=== PATIENT | male | born 1970 | race Caucasian/White ===

== ENCOUNTER 2019-04-07 21:18 | Emergency (ER) | payer OTHER ==
[2019-04-07] MEDS ORDERED: BABY ASPIRIN 81 MG CHEW PO ONE (21:44)
[2019-04-07] MEDS ORDERED: Sodium Chloride 0.9% 1000 ML 1,000 ML IV SCH (21:45)
[2019-04-07] MEDS ORDERED: Sodium Chloride 0.9% 1000 ML 1,000 ML ONE (21:47)
[2019-04-07] MEDS ORDERED: BABY ASPIRIN 81 MG CHEW ONE (21:47)
[2019-04-07 21:52] LABS: BASOPHIL % 0.6 % (0.0-0.4); Basophil (Absolute #) 0.05 (0-0.4); Eosinophil % 1.7 % (0.00-5.0); Eosinophil (Absolute #) 0.14 (0-0.5); Granulocyte Absolute (ANC) 4.77 (1.4-6.9); Granulocytes % 57.6 % (36.0-66.0); Hematocrit 44.8 % (42-50); Hemoglobin 15.7 gm/dl (12.5-18.0); INR 0.93 (0.8-3.0); Lymphocyte (Absolute #) 2.56 (1.0-4.6); Mean Cell Volume 85.7 fl (78-100); Mean Platelet Volume 10.2 fl (6-9.5); Monocytes % 9.1 % (0.0-12.0); PROTIME 10.5 SECONDS (8.83-12.87); Platelet Count 166 K/mm3 (150-450); Red Blood Count 5.23 M/mm3 (4.1-5.6); Red Cell Distribution Width 12.7 % (11.5-14.0); White Blood Count 8.3 K/mm3 (4.0-10.5)
--- NOTE | 2019-04-07 21:52 | ERPHSYRPT ---
- History of Present Illness Time Seen by Provider: 04/07/19 21:38 Historian: patient Exam Limitations: no limitations Patient Subjective Stated Complaint: PT C/O LEFT ARM/HAND TINGLING SENSATION X 3 HOURS, STATES HE LAID DOWN TO REST WHEN HE GOT BACK UP APPROX 1 HR AGO HE STARTED HAVING LEFT SIDED CHEST PAIN. DENIES CARDIAC HX. REPORTS 4 DAY HX OF VOMITING Triage Nursing Assessment: PINK/WARM/DRY, RESP EASY, A&OX4, STEADY GAIT, NO DISTRESS NOTED, EKG DONE Physician History: 48-year-old male arrives with complaint of pain in the anterior chest also had had some paresthesias in the left hand. Symptoms beginning at approximately 4:30 this afternoon after eating. According to patient around supper time (4:30 PM) he began to experience nausea and vomiting he states he had multiple episodes of vomiting, he states he then began to feel paresthesias in the left hand he did not have any problems moving or speaking. He states he laid down and then he began having pains in his anterior chest described as a pressure fairly constant. Occurring inferior to his left breast worse with deep breathing he states he has some shortness of breath. Patient states he's had this pain is approximately a 2/10 at this time. Past medical history includes high blood pressure, Past surgical history includes hernia repair, orthopedic surgery (left meniscus) Social history denies tobacco alcohol or illicit drug use Timing/Duration: today (4:30 PM) Activities at Onset: other (supper time) Quality: pressure Location: other (left anterior chest inferior to left breast) Chest Pain Radiation: no radiation Severity of Pain-Max: moderate Severity of Pain-Current: mild Modifying Factors: Improves With: other (worse with breathing). Worsens With: antacids, breathing, coughing, defecating, eating, exertion, lying down, morphine, movement, nitroglycerin, oxygen, palpation, rest, aspirin, sitting up , change in position Associated Symptoms: nausea, vomiting, shortness of breath, other (paresthesia left hand and arm), No palpitations, No heartburn, No abdominal pain, No cough, No diaphoresis, No chills, No fever, No fatigue, No weakness, No syncope, No rash, No headache, No dizziness, No edema, No back pain Prior Chest Pain/Cardiac Workup: no prior chest pain Nitro Today/Relief: no nitro taken today Aspirin Treatment Today: 81 mg x 4, provided by ED Allergies/Adverse Reactions: No Known Drug Allergies Allergy (Verified 04/07/19 21:24) - Review of Systems Constitutional: No Fever, No Chills Eyes: No Symptoms Ears, Nose, & Throat: No Symptoms Respiratory: Dyspnea, No Cough, No Stridor, No Wheezing Cardiac: Chest Pain, No Edema, No Palpitations, No Syncope, No Orthopnea Abdominal/Gastrointestinal: Nausea, Vomiting, No Abdominal Pain, No Diarrhea, No Constipation, No Hematemesis, No Hematochezia, No Melena, No Dysphagia, No Appetite Changes Genitourinary Symptoms: No Dysuria Musculoskeletal: No Back Pain, No Neck Pain Skin: No Rash Neurological: Parasthesia (pparesthesia left hand), No Dizziness, No Focal Weakness, No Gait Changes, No Headache, No Irritability, No Lethargy, No Paralysis, No Seizure, No Sensory Changes, No Speech Changes, No Tics, No Tremors, No Vertigo Psychological: No Symptoms Endocrine: No Symptoms All Other Systems: Reviewed and Negative - Past Medical History Pertinent Past Medical History: Yes Cardiac History: Hypertension - Past Surgical History Past Surgical History: Yes Gastrointestinal: Hernia Repair Musculoskeletal: Orthopedic Surgery Other Surgical History: MENISCUS - Social History Smoking Status: Never smoker Exposure to second hand smoke: No Patient Lives Alone: No - Nursing Vital Signs Nursing Vital Signs: Initial Vital Signs Temperature 98.4 F 04/07/19 21:24 Pulse Rate 76 04/07/19 21:24 Respiratory Rate 16 04/07/19 21:24 Blood Pressure 147/94 04/07/19 21:24 O2 Sat by Pulse Oximetry 99 04/07/19 21:24 Pain Scale Pain Intensity 0 - Physical Exam General Appearance: mild distress, alert Eye Exam: PERRL/EOMI, eyes nml inspection Ears, Nose, Throat Exam: normal ENT inspection, moist mucous membranes Neck Exam: normal inspection, non-tender, supple, full range of motion Respiratory Exam: normal breath sounds, lungs clear, airway intact, No chest tenderness, No respiratory distress, No diminished breath sounds Cardiovascular Exam: regular rate/rhythm, capillary refill <2 sec Gastrointestinal/Abdomen Exam: soft, No tenderness, No mass Back Exam: normal inspection, No CVA tenderness, No vertebral tenderness Extremity Exam: normal inspection, normal range of motion Neurologic Exam: alert, oriented x 3, cooperative, set off blocker II-XII nml as tested, normal mood/affect, sensation nml, other (patient is alert, oriented x3, speech normal, no facial droop, normal finger to nose, no pronator drift, machine hoop maker equal and symmetrical 5 over 5, full range of motion all extremities, sensation intact to all extremities, GCS equals 15), No motor deficits Skin Exam: normal color, warm, dry SpO2 Interpretation: normal (99%) SpO2: 99 - Course Nursing assessment & vital signs reviewed: Yes EKG Interpreted by Me: RATE (76 bpm), Sinus Rhythm, NORMAL AXIS, Other (EKG: Sinus rhythm, 76 beats per minute, normal axis, no acute ST or T wave changes.) Ordered Tests: Active Orders 24 hr Category Date Time Status Block Setter [place] STAT Care 04/07/19 21:34 Active EKG-ER Only STAT Care 04/07/19 21:34 Active IV Insertion STAT Care 04/07/19 21:34 Active Pulse Oximetry (ED) STAT Care 04/07/19 21:44 Active CHEST 1 VIEW (PORTABLE) Stat Exams 04/07/19 21:44 Taken AMYLASE Stat Lab 04/07/19 21:49 Completed CBC W DIFF Stat Lab 04/07/19 21:49 Completed CMP Stat Lab 04/07/19 21:49 Completed D-DIMER QUANTITATION Stat Lab 04/07/19 21:49 Completed LIPASE Stat Lab 04/07/19 21:49 Completed PROTIME WITH INR Stat Lab 04/07/19 21:49 Completed PTT Stat Lab 04/07/19 21:49 Completed TROPONIN Q3H Lab 04/07/19 21:49 Completed TROPONIN Q3H Lab 04/08/19 00:45 Ordered TROPONIN Q3H Lab 04/08/19 03:45 Ordered TROPONIN Q3H Lab 04/08/19 06:45 Ordered TROPONIN Q3H Lab 04/08/19 09:45 Ordered Medication Summary Generic Name Dose Route Start Last Admin Trade Name Freq PRN Reason Stop Dose Admin Sodium Chloride 1,000 mls @ 100 mls/hr 04/07/19 21:45 04/07/19 21:49 Sodium Chloride 0.9% 1000 Ml IV 05/07/19 21:44 100 mls/hr .Q10H YEISON Administration Discontinued Medications Generic Name Dose Route Start Last Admin Trade Name Freq PRN Reason Stop Dose Admin Aspirin 324 mg 04/07/19 21:44 04/07/19 21:49 Baby Aspirin 81 Mg Chew PO 04/07/19 21:45 324 mg STAT ONE Administration Aspirin Confirm 04/07/19 21:47 Baby Aspirin 81 Mg Chew Administered 04/07/19 21:48 Dose 324 mg .ROUTE .STK-MED ONE Lab/Rad Data: Laboratory Result Diagrams 04/07/19 21:49 04/07/19 21:49 Laboratory Results 04/07/19 04/07/19 04/07/19 Range/Units 21:49 21:49 21:49 WBC (4.0-10.5) K/mm3 RBC (4.1-5.6) M/mm3 Hgb (12.5-18.0) gm/dl Hct (42-50) % MCV (78-100) fl MCH (26-32) pg MCHC (32-36) g/dl RDW (11.5-14.0) % Plt Count (150-450) K/mm3 MPV (6-9.5) fl Gran % (36.0-66.0) % Eos # (Auto) (0-0.5) Absolute Lymphs (auto) (1.0-4.6) Absolute Monos (auto) (0.0-1.3) Lymphocytes % (24.0-44.0) % Monocytes % (0.0-12.0) % Eosinophils % (0.00-5.0) % Basophils % (0.0-0.4) % Absolute Granulocytes (1.4-6.9) Basophils # (0-0.4) PT 10.5 (8.83-12.87) SECONDS INR 0.93 (0.8-3.0) APTT 33.5 (24.1-36.1) SECONDS D-Dimer 382 (215-500) ng/mL Sodium (137-145) mmol/L Potassium (3.5-5.1) mmol/L Chloride (98-107) mmol/L Carbon Dioxide (22-30) mmol/L Anion Gap (5-15) MEQ/L BUN (9-20) mg/dL Creatinine (0.66-1.25) mg/dL Estimated GFR ML/MIN Glucose (74-106) mg/dL Calcium (8.4-10.2) mg/dL Total Bilirubin (0.2-1.3) mg/dL AST (17-59) U/L ALT (0-50) U/L Alkaline Phosphatase (38-126) U/L Troponin I < 0.012 (0.000-0.034) ng/mL Serum Total Protein (6.3-8.2) g/dL Albumin (3.5-5.0) g/dL Amylase 105 (30-110) U/L Lipase 124 (23-300) U/L 04/07/19 04/07/19 Range/Units 21:49 21:49 WBC 8.3 (4.0-10.5) K/mm3 RBC 5.23 (4.1-5.6) M/mm3 Hgb 15.7 (12.5-18.0) gm/dl Hct 44.8 (42-50) % MCV 85.7 (78-100) fl MCH 30.0 (26-32) pg MCHC 35.0 (32-36) g/dl RDW 12.7 (11.5-14.0) % Plt Count 166 (150-450) K/mm3 MPV 10.2 H (6-9.5) fl Gran % 57.6 (36.0-66.0) % Eos # (Auto) 0.14 (0-0.5) Absolute Lymphs (auto) 2.56 (1.0-4.6) Absolute Monos (auto) 0.75 (0.0-1.3) Lymphocytes % 31.0 (24.0-44.0) % Monocytes % 9.1 (0.0-12.0) % Eosinophils % 1.7 (0.00-5.0) % Basophils % 0.6 (0.0-0.4) % Absolute Granulocytes 4.77 (1.4-6.9) Basophils # 0.05 (0-0.4) PT (8.83-12.87) SECONDS INR (0.8-3.0) APTT (24.1-36.1) SECONDS D-Dimer (215-500) ng/mL Sodium 144 (137-145) mmol/L Potassium 3.7 (3.5-5.1) mmol/L Chloride 104 (98-107) mmol/L Carbon Dioxide 27 (22-30) mmol/L Anion Gap 17.0 H (5-15) MEQ/L BUN 10 (9-20) mg/dL Creatinine 0.83 (0.66-1.25) mg/dL Estimated GFR > 60.0 ML/MIN Glucose 99 (74-106) mg/dL Calcium 9.9 (8.4-10.2) mg/dL Total Bilirubin 0.50 (0.2-1.3) mg/dL AST 29 (17-59) U/L ALT 24 (0-50) U/L Alkaline Phosphatase 100 (38-126) U/L Troponin I (0.000-0.034) ng/mL Serum Total Protein 8.3 H (6.3-8.2) g/dL Albumin 4.8 (3.5-5.0) g/dL Amylase (30-110) U/L Lipase (23-300) U/L - Progress Progress: improved Progress Note: 04/07/19 23:19 Patient with no further chest pain. Patient's EKG sinus rhythm 76 beats per minute normal axis no acute ST or T wave changes are noted Chest x-ray no acute disease process noted patient's troponin is within normal limits at less than 0.012 patient's amylase 105 lipase 124 patient's chemistry essentially normal patient's CBC essentially normal patient's d-dimer is normal. I've offered to have the patient repeat his troponin he does not want to do so will discharge patient. Will write for Zofran for nausea. - Departure Departure Disposition: Nursing Home/Care Home Clinical Impression: Vomiting Chest pain Qualifiers: Chest pain type: unspecified Qualified Code(s): R07.9 - Chest pain, unspecified Condition: Fair Critical Care Time: No Referrals: DOCTOR,NO FAMILY [Primary Care Provider] - Instructions: Chest Pain (DC) Additional Instructions: Return home. Plenty of fluids, clear fluids only 24-48 hours if nausea or vomiting. Tylenol every 4 hours as needed for pain. Followup with your family DrLesia or the senior living doctor. Zofran as prescribed. Return for acute distress or for severe symptoms. Prescriptions: Ondansetron ODT 4 MG [Zofran Odt 4 mg] 4 mg PO Q6H PRN PRN #10 tab.rapdis PRN Reason: nausea and vomiting
[2019-04-07 21:55] LABS: PTT 33.5 SECONDS (24.1-36.1)
[2019-04-07 21:58] LABS: ALBUMIN 4.8 g/dL (3.5-5.0); ALKALINE PHOSPHATASE 100 U/L (38-126); AMYLASE 105 U/L (30-110); BLOOD UREA NITROGEN 10 mg/dL (9-20); CHLORIDE 104 mmol/L (98-107); Calcium 9.9 mg/dL (8.4-10.2); Carbon Dioxide 27 mmol/L (22-30); Creatinine 1 0.83 mg/dL (0.66-1.25); Glucose 99 mg/dL (74-106); LIPASE 124 U/L (23-300); Potassium 3.7 mmol/L (3.5-5.1); SGOT/AST 29 U/L (17-59); SGPT/ALT 24 U/L (0-50); SODIUM 144 mmol/L (137-145); Total Protein 8.3 g/dL (6.3-8.2)
[2019-04-07 23:22] VITALS: O2SAT 99
[2019-04-07 23:26] VITALS: BP 159/104; PULSE 76
--- NOTE | 2019-04-08 08:46 | XRAY ---
Indication: Chest pain. Comparison: None Portable apical lordotic chest demonstrates normal heart and lungs. Bony thorax intact.
== END 2019-04-07 23:30 | disposition home or self-care (01) ==
LOC: ED 21:18
DX: R11.10 Vomiting, unspecified (principal); R07.9 Chest pain, unspecified
CPT/HCPCS: 36000; 36415; 71045; 80053; 82150; 83690; 84484; 85025; 85379; 85610; 85730; 93005; 93041; 96360; 96361; 99284; A9270-GY

== ENCOUNTER 2024-05-04 17:13 | Emergency (ER) | payer OTHER ==
--- NOTE | 2024-05-04 17:16 | ERPHSYRPT ---
- History of Present Illness Time Seen by Provider: 05/04/24 17:16 Historian: patient, EMS Exam Limitations: no limitations Physician History: This is a 53-year-old white male patient who is a resident at the local [facility] and was brought to the emergency department by the manager workers compensation service because of left side chest pain that began suddenly at 1600 this afternoon prior to arrival. Patient has no known or documented coronary artery disease. He has not had a cough. He has had no hemoptysis. He has no associated shortness of breath. Patient does not have a family doctor. He takes no medications chronically and he has no known drug allergies. Patient does have a history of hypertension but is currently not taking any medication. Patient describes the pain as sharp, localized and nonradiating. Timing/Duration: today Activities at Onset: none Quality: sharpness Location: other (Left chest pain) Severity of Pain-Max: mild Severity of Pain-Current: mild (Moderate) Modifying Factors: Improves With: nothing Associated Symptoms: denies symptoms Prior Chest Pain/Cardiac Workup: no prior chest pain, no prior cardiac workup Nitro Today/Relief: no nitro taken today Aspirin Treatment Today: 81 mg x 4, provided by ED Allergies/Adverse Reactions: No Known Drug Allergies Allergy (Verified 05/04/24 17:27) Home Medications: No Reportable Medications [No Reported Medications] 05/04/24 [History] Travel Risk - International Travel Have you traveled outside of the country in past 3 weeks: No - Emerging Infectious Disease Are you exhibiting symptoms associated with any current EIDs: No - Review of Systems Constitutional: No Symptoms Eyes: No Symptoms Ears, Nose, & Throat: No Symptoms Respiratory: No Symptoms Cardiac: Chest Pain Abdominal/Gastrointestinal: No Symptoms Genitourinary Symptoms: No Symptoms Musculoskeletal: No Symptoms Skin: No Symptoms Neurological: No Symptoms Psychological: No Symptoms Endocrine: No Symptoms Hematologic/Lymphatic: No Symptoms Immunological/Allergic: No Symptoms All Other Systems: Reviewed and Negative - Past Medical History Pertinent Past Medical History: Yes Cardiac History: Hypertension - Past Surgical History Past Surgical History: Yes Gastrointestinal: Hernia Repair Musculoskeletal: Orthopedic Surgery Other Surgical History: MENISCUS - Social History Smoking Status: Never smoker Exposure to second hand smoke: No Patient Lives Alone: No - Nursing Vital Signs Nursing Vital Signs: Initial Vital Signs Temperature 97.6 F 05/04/24 17:13 Pulse Rate 81 05/04/24 17:13 Respiratory Rate 16 05/04/24 17:13 Blood Pressure 156/104 05/04/24 17:13 O2 Sat by Pulse Oximetry 97 05/04/24 17:13 Pain Scale Pain Intensity 2 - Physical Exam General Appearance: no apparent distress, alert, anxiety Eye Exam: PERRL/EOMI, eyes nml inspection Ears, Nose, Throat Exam: normal ENT inspection, moist mucous membranes Neck Exam: normal inspection, non-tender, supple, full range of motion Respiratory Exam: normal breath sounds, chest tenderness (Sharp localized left anterior chest, nonradiating), lungs clear, airway intact, No respiratory distress Cardiovascular Exam: regular rate/rhythm, normal heart sounds, normal peripheral pulses Gastrointestinal/Abdomen Exam: soft, normal bowel sounds, No tenderness Rectal Exam: not done Back Exam: normal inspection, normal range of motion, No CVA tenderness, No vertebral tenderness Extremity Exam: normal inspection, normal range of motion, pelvis stable Neurologic Exam: alert, oriented x 3, cooperative, water meter installer II-XII nml as tested, nml cerebellar function, nml station & gait, sensation nml Skin Exam: normal color, warm, dry Lymphatic Exam: No adenopathy SpO2 Interpretation: normal O2 Delivery: Room Air - Course Nursing assessment & vital signs reviewed: Yes Ordered Tests: Active Orders 24 hr Category Date Time Status [place] STAT Care 05/04/24 17:31 Active EKG-ER Only STAT Care 05/04/24 17:30 Active IV Insertion STAT Care 05/04/24 17:30 Active Pulse Oximetry (ED) STAT Care 05/04/24 17:30 Active CHEST 1 VIEW (PORTABLE) Stat Exams 05/04/24 17:30 Taken CBC W DIFF Stat Lab 05/04/24 17:25 Completed CMP Stat Lab 05/04/24 17:25 Completed D-DIMER QUANTITATIVE Stat Lab 05/04/24 17:25 Completed MAG [MAGNESIUM] Stat Lab 05/04/24 17:25 Completed NT PRO BNPII Stat Lab 05/04/24 17:25 Completed PROTIME WITH INR Stat Lab 05/04/24 17:25 Completed TROPONIN Q4H Lab 05/04/24 17:25 Completed TROPONIN Q4H Lab 05/04/24 21:30 Ordered TROPONIN Q4H Lab 05/05/24 01:30 Ordered Medication Summary Discontinued Medications Generic Name Dose Route Start Last Admin Trade Name Freq PRN Reason Stop Dose Admin Aspirin 324 mg 05/04/24 17:30 05/04/24 17:37 Aspirin 81 Mg Tab.Chew PO 05/04/24 17:31 324 mg STAT ONE Administration Aspirin Confirm 05/04/24 17:36 Aspirin 81 Mg Tab.Chew Administered 05/04/24 17:37 Dose 324 mg .ROUTE .STK-MED ONE Lab/Rad Data: Laboratory Result Diagrams 05/04/24 17:25 05/04/24 17:25 Laboratory Results 05/04/24 05/04/24 05/04/24 Range/Units 17:25 17:25 17:25 WBC (4.23-9.07) x10^3/uL RBC (4.63-6.08) x10^6/uL Hgb (13.7-17.5) g/dL Hct (40.1-51.0) % MCV (79.0-92.2) fL MCH (25.7-32.2) pg MCHC (32.3-36.5) g/dL RDW (11.6-14.4) % Plt Count (163-337) x10^3/uL MPV (9.4-12.4) fL Gran % (34.0-67.9) % Immature Gran % (Auto) (0.001-0.429) % Nucleat RBC Rel Count (0.00-0.2) % Eos # (Auto) (0.04-0.54) x10^3/uL Immature Gran # (Auto) (0.001-0.031) x10^3u/L Absolute Lymphs (auto) (1.32-3.57) x10^3/uL Absolute Monos (auto) (0.30-0.82) x10^3/uL Absolute Nucleated RBC (0.00-0.012) x10^3u/L Lymphocytes % (21.8-53.1) % Monocytes % (5.3-12.2) % Eosinophils % (0.8-7.0) % Basophils % (0.2-1.2) % Absolute Granulocytes (1.78-5.38) x10^3/uL Basophils # (0.01-0.08) x10^3/uL PT 10.3 (9.4-12.5) SECONDS INR 0.94 (0.8-3.0) D-Dimer 0.47 (0.0-0.50) mg/L Sodium (135-145) mmol/L Potassium (3.5-5.1) mmol/L Chloride (98-107) mmol/L Carbon Dioxide (22-30) mmol/L Anion Gap (5-15) MEQ/L BUN (9-20) mg/dL Creatinine (0.66-1.25) mg/dL Estimated GFR ML/MIN Glucose (74-106) mg/dL Calcium (8.4-10.2) mg/dL Magnesium 2.1 (1.6-2.3) mg/dL Total Bilirubin (0.2-1.3) mg/dL AST (17-59) U/L ALT (0-50) U/L Alkaline Phosphatase (38-126) U/L Troponin I (0.000-0.033) ng/mL NT-Pro-B Natriuret Pep < 20.0 (<300) pg/mL Serum Total Protein (6.3-8.2) g/dL Albumin (3.5-5.0) g/dL 05/04/24 05/04/24 Range/Units 17:25 17:25 WBC 5.4 (4.23-9.07) x10^3/uL RBC 5.18 (4.63-6.08) x10^6/uL Hgb 15.1 (13.7-17.5) g/dL Hct 43.0 (40.1-51.0) % MCV 83.0 (79.0-92.2) fL MCH 29.2 (25.7-32.2) pg MCHC 35.1 (32.3-36.5) g/dL RDW 12.0 (11.6-14.4) % Plt Count 289 (163-337) x10^3/uL MPV 9.7 (9.4-12.4) fL Gran % 54.6 (34.0-67.9) % Immature Gran % (Auto) 0.2 (0.001-0.429) % Nucleat RBC Rel Count 0.0 (0.00-0.2) % Eos # (Auto) 0.16 (0.04-0.54) x10^3/uL Immature Gran # (Auto) 0.01 (0.001-0.031) x10^3u/L Absolute Lymphs (auto) 1.66 (1.32-3.57) x10^3/uL Absolute Monos (auto) 0.55 (0.30-0.82) x10^3/uL Absolute Nucleated RBC 0.00 (0.00-0.012) x10^3u/L Lymphocytes % 30.9 (21.8-53.1) % Monocytes % 10.2 (5.3-12.2) % Eosinophils % 3.0 (0.8-7.0) % Basophils % 1.1 (0.2-1.2) % Absolute Granulocytes 2.93 (1.78-5.38) x10^3/uL Basophils # 0.06 (0.01-0.08) x10^3/uL PT (9.4-12.5) SECONDS INR (0.8-3.0) D-Dimer (0.0-0.50) mg/L Sodium 140 (135-145) mmol/L Potassium 4.3 (3.5-5.1) mmol/L Chloride 104 (98-107) mmol/L Carbon Dioxide 24 (22-30) mmol/L Anion Gap 15.3 H (5-15) MEQ/L BUN 11 (9-20) mg/dL Creatinine 0.83 (0.66-1.25) mg/dL Estimated GFR 106.0 ML/MIN Glucose 137 H (74-106) mg/dL Calcium 9.4 (8.4-10.2) mg/dL Magnesium (1.6-2.3) mg/dL Total Bilirubin 0.50 (0.2-1.3) mg/dL AST 33 (17-59) U/L ALT 30 (0-50) U/L Alkaline Phosphatase 110 (38-126) U/L Troponin I < 0.012 (0.000-0.033) ng/mL NT-Pro-B Natriuret Pep (<300) pg/mL Serum Total Protein 7.9 (6.3-8.2) g/dL Albumin 4.6 (3.5-5.0) g/dL - Progress Progress: improved, re-examined Air Movement: good Progress Note: 05/04/24 17:35 My medical decision making and the assignment of moderate complexity to this patient's medical issue today is based on review of the patient's past medical history, review of the patient's medication list, review of patient drug allergy list, history present illness and physical findings on examination. The workup in this patient includes placement of intravenous line, CBC, CMP, troponin level, D-dimer level, BNP level, PT/INR, chest x-ray, twelve-lead EKG and magnesium level. Differential diagnosis includes but is not limited to acute myocardial infarction, pulmonary embolus, arrhythmia, electrolyte abnormalities, muscle skeletal pain 05/04/24 18:27 Interpreted the patient's laboratory data results. Based on the laboratory data results, there are no acute or emergent medical issues. The preliminary chest x-ray was interpreted by me. There is no evidence of any acute cardiopulmonary process. Blood Culture(s) Obtained: No Antibiotics given: No Counseled pt/family regarding: lab results, diagnosis, need for follow-up, rad results Medical Desision Making - Diagnostic Testing Diagnostic test were ordered, analyzed, and reviewed by me: Yes Radiological Interpretation: Interpreted by me - Risk of complications Low Risk: Low risk of morbidity from additional dx testing or treatment - Departure Departure Disposition: Home Clinical Impression: Nonspecific chest pain Condition: Stable Critical Care Time: No Referrals: DOCTOR,NO FAMILY [Primary Care Provider] - Follow up/PCP as directed Additional Instructions: Follow-up with outpatient primary care provider by phone, tomorrow 05/05/2024, to make arranges for follow-up appointment to be seen in the next 5 to 7 days..
[2024-05-04 17:26] VITALS: TEMP 97.6
[2024-05-04] MEDS ORDERED: BABY ASPIRIN 81 MG CHEW ONE (17:36)
[2024-05-04] MEDS: BABY ASPIRIN 81 MG CHEW PO ONE (17:37)
[2024-05-04 17:48] LABS: Absolute Neutrophil Ct (ANC) 2.93 x10^3/uL (1.78-5.38); BASOPHIL % 1.1 % (0.2-1.2); Basophil (Absolute #) 0.06 x10^3/uL (0.01-0.08); Eosinophil (Absolute #) 0.16 x10^3/uL (0.04-0.54); Hemoglobin 15.1 g/dL (13.7-17.5); IMMATURE GRAN # 0.01 x10^3u/L (0.001-0.031); IMMATURE GRAN % 0.2 % (0.001-0.429); Lymphocyte (Absolute #) 1.66 x10^3/uL (1.32-3.57); Lymphocytes % 30.9 % (21.8-53.1); Mean Corpuscular Hemoglobin 29.2 pg (25.7-32.2); Mean Corpuscular Hgb Concent. 35.1 g/dL (32.3-36.5); Mean Platelet Volume 9.7 fL (9.4-12.4); Monocyte (Absolute #) 0.55 x10^3/uL (0.30-0.82); Monocytes % 10.2 % (5.3-12.2); Neutrophil % 54.6 % (34.0-67.9); Platelet Count 289 x10^3/uL (163-337); Red Blood Count 5.18 x10^6/uL (4.63-6.08); White Blood Count 5.4 x10^3/uL (4.23-9.07)
[2024-05-04 18:06] LABS: D-DIMER QUANTITATIVE 0.47 mg/L (0.0-0.50); INR 0.94 (0.8-3.0); PROTIME 10.3 SECONDS (9.4-12.5)
[2024-05-04 18:16] LABS: ALBUMIN 4.6 g/dL (3.5-5.0); ALKALINE PHOSPHATASE 110 U/L (38-126); ANION GAP 15.3 MEQ/L (5-15); BLOOD UREA NITROGEN 11 mg/dL (9-20); CHLORIDE 104 mmol/L (98-107); Calcium 9.4 mg/dL (8.4-10.2); Carbon Dioxide 24 mmol/L (22-30); Creatinine 1 0.83 mg/dL (0.66-1.25); Glucose 137 mg/dL (74-106); Potassium 4.3 mmol/L (3.5-5.1); SGOT/AST 33 U/L (17-59); SGPT/ALT 30 U/L (0-50); SODIUM 140 mmol/L (135-145); TROPONIN < 0.012 ng/mL (0.000-0.033); Total Protein 7.9 g/dL (6.3-8.2)
[2024-05-04 18:29] VITALS: BP 145/95; PULSE 71; RESP 22; O2SAT 94
--- NOTE | 2024-05-05 08:37 | XRAY ---
Indication: Left chest pain. Comparison: April 07, 2019 Portable apical lordotic chest remains inflated and clear. Heart not enlarged. Bony thorax intact. No new/acute findings.
== END 2024-05-04 18:35 | disposition home or self-care (01) ==
LOC: EEVIPCON 17:13 → ED 17:13
DX: R07.9 Chest pain, unspecified (principal); I10 Essential (primary) hypertension
CPT/HCPCS: 36000; 36415; 71045; 80053; 83735; 83880; 84484; 85025; 85379; 85610; 93005; 93041; 94760; 99284; A9270-GY